=== PATIENT | male | born 1945 | race Two or more races ===

== ENCOUNTER 2019-10-10 13:00 | Outpatient (CLI) | payer MEDICARE, MEDICAID | END 2019-10-10 23:59 | LOC: WOU 13:00 | PROVIDERS: ATTEND Podiatrist Foot & Ankle Surgery | DX: E11.621 Type 2 diabetes mellitus with foot ulcer (principal); L97.422 Non-pressure chronic ulcer of left heel and midfoot with fat layer exposed; L97.412 Non-pressure chronic ulcer of right heel and midfoot with fat layer exposed; L97.525 Non-pressure chronic ulcer of other part of left foot with muscle involvement without evidence of necrosis; E11.51 Type 2 diabetes mellitus with diabetic peripheral angiopathy without gangrene; E11.42 Type 2 diabetes mellitus with diabetic polyneuropathy; E11.22 Type 2 diabetes mellitus with diabetic chronic kidney disease; I12.0 Hypertensive chronic kidney disease with stage 5 chronic kidney disease or end stage renal disease; N18.6 End stage renal disease; Z99.2 Dependence on renal dialysis; Z79.4 Long term (current) use of insulin; Z87.891 Personal history of nicotine dependence; Z79.899 Other long term (current) drug therapy; Z89.421 Acquired absence of other right toe(s); Z89.432 Acquired absence of left foot | CPT/HCPCS: 11042; 11043 ==

== ENCOUNTER → 2019-10-17 | Outpatient (CLI) | payer MEDICARE, MEDICAID | LOC: WOU 13:00 | PROVIDERS: ATTEND Podiatrist Foot & Ankle Surgery | DX: E11.621 Type 2 diabetes mellitus with foot ulcer (principal); L97.422 Non-pressure chronic ulcer of left heel and midfoot with fat layer exposed; L97.412 Non-pressure chronic ulcer of right heel and midfoot with fat layer exposed; L97.525 Non-pressure chronic ulcer of other part of left foot with muscle involvement without evidence of necrosis; E11.22 Type 2 diabetes mellitus with diabetic chronic kidney disease; E11.51 Type 2 diabetes mellitus with diabetic peripheral angiopathy without gangrene; E11.42 Type 2 diabetes mellitus with diabetic polyneuropathy; I12.0 Hypertensive chronic kidney disease with stage 5 chronic kidney disease or end stage renal disease; N18.6 End stage renal disease; Z99.2 Dependence on renal dialysis; Z87.891 Personal history of nicotine dependence; Z89.432 Acquired absence of left foot; Z89.421 Acquired absence of other right toe(s) | CPT/HCPCS: 11042; 11043 ==

== ENCOUNTER → 2019-10-24 | Outpatient (CLI) | payer MEDICARE, MEDICAID | LOC: WOU 13:00 | PROVIDERS: ATTEND Podiatrist Foot & Ankle Surgery | DX: L97.525 Non-pressure chronic ulcer of other part of left foot with muscle involvement without evidence of necrosis (principal); L97.422 Non-pressure chronic ulcer of left heel and midfoot with fat layer exposed; L97.412 Non-pressure chronic ulcer of right heel and midfoot with fat layer exposed; E11.52 Type 2 diabetes mellitus with diabetic peripheral angiopathy with gangrene; E11.22 Type 2 diabetes mellitus with diabetic chronic kidney disease; I96 Gangrene, not elsewhere classified; I12.0 Hypertensive chronic kidney disease with stage 5 chronic kidney disease or end stage renal disease; N18.6 End stage renal disease; Z99.2 Dependence on renal dialysis; Z87.891 Personal history of nicotine dependence; Z79.4 Long term (current) use of insulin; Z79.899 Other long term (current) drug therapy; Z89.432 Acquired absence of left foot; Z89.421 Acquired absence of other right toe(s) | CPT/HCPCS: 11042; 11043; 11045 ==

== ENCOUNTER 2019-12-28 11:10 | Outpatient (CLI) | payer MEDICARE, MEDICAID | END 2019-12-28 23:59 | disposition home health service (06) | LOC: WOU 11:10 | PROVIDERS: ATTEND Surgery | DX: E11.621 Type 2 diabetes mellitus with foot ulcer (principal); L97.523 Non-pressure chronic ulcer of other part of left foot with necrosis of muscle; L97.423 Non-pressure chronic ulcer of left heel and midfoot with necrosis of muscle; L97.413 Non-pressure chronic ulcer of right heel and midfoot with necrosis of muscle; L89.153 Pressure ulcer of sacral region, stage 3; E11.42 Type 2 diabetes mellitus with diabetic polyneuropathy; E11.52 Type 2 diabetes mellitus with diabetic peripheral angiopathy with gangrene; E11.22 Type 2 diabetes mellitus with diabetic chronic kidney disease; N18.6 End stage renal disease; I96 Gangrene, not elsewhere classified; Z99.2 Dependence on renal dialysis; Z89.432 Acquired absence of left foot; Z89.421 Acquired absence of other right toe(s); Z79.4 Long term (current) use of insulin | CPT/HCPCS: 11043 ==